=== PATIENT | male | born 1950 | race Two or more races ===

== ENCOUNTER 2017-05-20 16:42 | Emergency (ER) | payer MEDICARE, MEDICAID ==
[~2017-05-20] VITALS: Ht 182.9 cm; Wt 110.8 kg
[~2017-05-20 16:42] MED LIST: ASCO-261 PO; ASPI-1071 PO; CLON0.2T PO; DORZ10DR10 RIGHTEYE; FENO160T13 PO; FURO40TA4 PO; ISOS30TA6 PO; LOSA50TA3 PO; METO-411 PO; MULT-1074 PO; POTA10TA36 PO; TERA2CAP4 PO; TICA90TA2 PO; XAL0.005OS EACHEYE; imdur
[2017-05-20 17:04] LABS: BASOPHILS % (AUTO) 0.3 % (0-1); EOSINOPHILS # (AUTO) 0.1 X10'3 (0-0.9); HEMOGLOBIN 14.9 g/dl (14.0-17.9); LYMPHOCYTES # (AUTO) 1.8 X10'3 (1.1-4.8); LYMPHOCYTES % (AUTO) 12.7 % (21-51); MEAN CORPUSCULAR HEMOGLOBIN 30.6 PG (27.0-31.0); MEAN CORPUSCULAR HGB CONC 34.7 % (33.0-36.5); MEAN CORPUSCULAR VOLUME 88.2 FL (78-98); MEAN PLATELET VOLUME 9.7 FL (7.4-10.4); MONOCYTES % (AUTO) 7.5 % (2-12); NEUTROPHILS # (AUTO) 10.9 X10'3 (1.8-7.7); NEUTROPHILS % (AUTO) 78.5 % (42-75); PLATELET COUNT 240 X10'3 (140-440); RED BLOOD COUNT 4.87 X10'6 (4.70-6.10); RED CELL DISTRIBUTION WIDTH 14.2 % (11.5-14.5); WHITE BLOOD COUNT 13.9 X10'3 (4.5-11.0)
[2017-05-20 17:14] LABS: PARTIAL THROMBOPLASTIN TIME 26 SECONDS (22-32); PROTHROMBIN TIME 10.7 SECONDS (9.0-12.0)
[2017-05-20] MEDS ORDERED: adenosine 3mg/ml 2ml vial IV ONE ×2 (17:15)
[2017-05-20 17:20] LABS: ALANINE AMINOTRANSFERASE 30 U/L (12-78); ALBUMIN/GLOBULIN RATIO 1.2 (1.1-1.5); ALKALINE PHOSPHATASE 43 IU/L (46-116); ANION GAP 14 (8-16); ASPARTATE AMINO TRANSFERASE 22 U/L (10-37); BILIRUBIN,TOTAL 0.5 MG/DL (0.1-1.0); BLOOD UREA NITROGEN 21 MG/DL (7-18); BUN/CREATININE RATIO 10.8 (5.4-32.0); CALCIUM 9.4 MG/DL (8.5-10.1); CHLORIDE 109 MMOL/L (99-107); CREATININE 1.94 MG/DL (0.60-1.10); GLUCOSE 157 MG/DL (70-104); POTASSIUM 3.5 MMOL/L (3.5-5.1); SODIUM 146 MMOL/L (135-145); TOTAL CARBON DIOXIDE 23.5 MMOL/L (24-32); TOTAL PROTEIN 7.4 G/DL (6.4-8.2); eGFR 35 ML/MIN
[2017-05-20] MEDS ORDERED: diltiazem 5mg/ml 5ml inj. IV ONE ×2 (17:35)
[2017-05-20] MEDS: metoprolol tartrate 1mg/ml inj IV SCH ×4 (18:59→19:33)
[2017-05-20] MEDS ORDERED: normal saline 1000ml 1,000 ML IV ONE (19:30)
[2017-05-20 21:28] VITALS: BP 127/48
== END 2017-05-20 21:32 | disposition home or self-care (01) ==
LOC: ER 16:42
DX: I47.1 Supraventricular tachycardia (principal); E86.0 Dehydration; N17.9 Acute kidney failure, unspecified; I25.10 Atherosclerotic heart disease of native coronary artery without angina pectoris; R07.89 Other chest pain; E78.00 Pure hypercholesterolemia, unspecified; I10 Essential (primary) hypertension; F17.200 Nicotine dependence, unspecified, uncomplicated; Z88.0 Allergy status to penicillin; Z88.8 Allergy status to other drugs, medicaments and biological substances; Z79.899 Other long term (current) drug therapy; Z95.5 Presence of coronary angioplasty implant and graft
CPT/HCPCS: 36415; 71045; 80053; 84484; 85025; 85610; 85730; 93005; 96361; 96374; 99285; J0153; J3490; J7030; 96375

== ENCOUNTER 2017-06-03 21:02 | Observation (INO) | payer MEDICARE, MEDICAID ==
[~2017-06-03] VITALS: Ht 182.9 cm; Wt 109.1 kg
[2017-06-03 21:40] LABS: BASOPHILS % (AUTO) 0.4 % (0-1); EOSINOPHILS # (AUTO) 0.2 X10'3 (0-0.9); EOSINOPHILS % (AUTO) 1.5 % (0-6); HEMATOCRIT 41.2 % (42.0-52.0); HEMOGLOBIN 14.2 g/dl (14.0-17.9); LYMPHOCYTES % (AUTO) 18.3 % (21-51); MEAN CORPUSCULAR HEMOGLOBIN 30.6 PG (27.0-31.0); MEAN CORPUSCULAR HGB CONC 34.5 % (33.0-36.5); MEAN CORPUSCULAR VOLUME 88.9 FL (78-98); MEAN PLATELET VOLUME 9.4 FL (7.4-10.4); MONOCYTES # (AUTO) 0.9 X10'3 (0-0.9); MONOCYTES % (AUTO) 8.4 % (2-12); NEUTROPHILS # (AUTO) 7.8 X10'3 (1.8-7.7); NEUTROPHILS % (AUTO) 71.4 % (42-75); PLATELET COUNT 239 X10'3 (140-440); RED BLOOD COUNT 4.63 X10'6 (4.70-6.10); WHITE BLOOD COUNT 10.9 X10'3 (4.5-11.0)
[2017-06-03 21:52] LABS: INR 1.1 INR; PARTIAL THROMBOPLASTIN TIME 29 SECONDS (22-32); PROTHROMBIN TIME 10.9 SECONDS (9.0-12.0)
[2017-06-03 21:55] LABS: ALANINE AMINOTRANSFERASE 23 U/L (12-78); ALBUMIN 3.7 G/DL (3.4-5.0); ALBUMIN/GLOBULIN RATIO 1.1 (1.1-1.5); ALKALINE PHOSPHATASE 43 IU/L (46-116); ANION GAP 8 (8-16); ASPARTATE AMINO TRANSFERASE 15 U/L (10-37); BILIRUBIN,TOTAL 0.4 MG/DL (0.1-1.0); BLOOD UREA NITROGEN 15 MG/DL (7-18); BUN/CREATININE RATIO 12.4 (5.4-32.0); CALCIUM 9.2 MG/DL (8.5-10.1); CHLORIDE 109 MMOL/L (99-107); CREATININE 1.21 MG/DL (0.60-1.10); GLUCOSE 121 MG/DL (70-104); POTASSIUM 3.2 MMOL/L (3.5-5.1); SODIUM 144 MMOL/L (135-145); TOTAL CARBON DIOXIDE 26.9 MMOL/L (24-32); TOTAL PROTEIN 7.1 G/DL (6.4-8.2); eGFR 60 ML/MIN
[2017-06-03] MEDS ORDERED: digoxin 250mcg/ml 2ml ampule IV ONE (22:05)
[2017-06-03] MEDS ORDERED: potassium chloride 10mEq CAPSULE.SA PO STA (23:19)
[2017-06-03] MEDS ORDERED: FISH1CAP15 PO (23:41)
[2017-06-03] MEDS ORDERED: APIX5TAB3 PO (23:41)
[2017-06-03] MEDS ORDERED: CLOP75TA35 PO (23:41)
[2017-06-03] MEDS ORDERED: FENO145T38 PO (23:41)
[2017-06-03] MEDS ORDERED: ATOR20TA PO (23:41)
[2017-06-03] MEDS ORDERED: ALFU10TA10 PO (23:41)
[2017-06-03] MEDS ORDERED: GLUC-133 PO (23:41)
[2017-06-03] MEDS ORDERED: HYDR12.5 PO (23:41)
[2017-06-03] MEDS ORDERED: VITA400C65 PO (23:41)
[2017-06-03] MEDS ORDERED: LUTE1CAP4 PO (23:41)
[2017-06-03] MEDS ORDERED: HYDR-4070 PO (23:41)
[2017-06-03] MEDS ORDERED: potassium Cl 20 mEq SR tablet PO STA (23:45)
[2017-06-04] MEDS ORDERED: ondansetron/PF 4mg/2ml inj IV PRN (00:25)
[2017-06-04] MEDS ORDERED: non-formulary drug (Gluc 2KCL/Chondr/Coll Hy/Hy Ac (Glucosamine & Chondroitin Cap) 1 EACH) PO SCH (08:00)
[2017-06-04] MEDS ORDERED: HYDROchlorothiazide 12.5mg capsule PO SCH (08:00)
[2017-06-04] MEDS ORDERED: ZEAXANTHIN PO SCH (08:00)
[2017-06-04] MEDS ORDERED: clopidogrel 75mg tablet PO SCH (08:00)
[2017-06-04] MEDS ORDERED: FENOFIBRATE PO SCH (08:00)
[2017-06-04] MEDS ORDERED: OMEGA-3/DHA/EPA/FISH OIL 1 EACH CAPSULE.DR PO SCH (08:00)
[2017-06-04] MEDS ORDERED: alfuzosin 10MG TAB.SR.24H PO SCH (08:00)
[2017-06-04] MEDS ORDERED: losartan 50mg tablet PO SCH (08:00)
[2017-06-04] MEDS ORDERED: diltiazem SR 60mg capsule (twice daily) PO SCH (08:00)
[2017-06-04] MEDS ORDERED: LUTEIN PO SCH (08:00)
[2017-06-04] MEDS ORDERED: apixaban 5mg tablet PO SCH (08:00)
[2017-06-04] MEDS ORDERED: dorzolamide/timolol (Cosopt) ophthalmic drops 10ml bottle RIGHTEYE SCH (08:00)
[2017-06-04] MEDS ORDERED: metoprolol succinate 25mg (24-HOUR) SR. Tablet PO SCH (08:00)
[2017-06-04] MEDS ORDERED: ascorbic acid 500mg tablet PO SCH (08:00)
[2017-06-04] MEDS ORDERED: vitamin E 400 unit capsule PO SCH (08:00)
[2017-06-04] MEDS ORDERED: multivitamins, therapeutics tablet PO SCH (08:00)
[2017-06-04] MEDS ORDERED: fenofibrate 145mg tablet PO SCH (08:00)
[2017-06-04] MEDS ORDERED: hydrALAZINE 25 MG tablet PO SCH (08:00)
[2017-06-04] MEDS ORDERED: ALFUZOSIN 10 MG PO SCH (08:13)
[2017-06-04] MEDS ORDERED: sotalol 80mg tablet PO SCH (11:20)
[2017-06-04] MEDS ORDERED: SOTA80TA69 PO ×2 (11:36)
[2017-06-04 12:30] VITALS: BP 125/58
[2017-06-04] MEDS ORDERED: atorvastatin 20mg tablet PO SCH (21:00)
[2017-06-04] MEDS ORDERED: latanoprost 0.005% 2.5ml ophthalmic drops EACHEYE SCH (21:00)
== END 2017-06-04 13:35 | disposition home or self-care (01) ==
LOC: ER 21:03 → ED HOLD 06-04 00:24
PROVIDERS: ADMIT Family Medicine; ATTEND Family Medicine
DX: I48.91 Unspecified atrial fibrillation (principal); I25.10 Atherosclerotic heart disease of native coronary artery without angina pectoris; I47.1 Supraventricular tachycardia; I10 Essential (primary) hypertension; E78.5 Hyperlipidemia, unspecified; E78.00 Pure hypercholesterolemia, unspecified; E87.6 Hypokalemia; F10.10 Alcohol abuse, uncomplicated; F41.9 Anxiety disorder, unspecified; G89.29 Other chronic pain; J44.9 Chronic obstructive pulmonary disease, unspecified; K21.9 Gastro-esophageal reflux disease without esophagitis; K27.9 Peptic ulcer, site unspecified, unspecified as acute or chronic, without hemorrhage or perforation; K44.9 Diaphragmatic hernia without obstruction or gangrene; N40.0 Benign prostatic hyperplasia without lower urinary tract symptoms; Z72.0 Tobacco use; Z95.5 Presence of coronary angioplasty implant and graft; Z80.9 Family history of malignant neoplasm, unspecified
CPT/HCPCS: 36415; 71045; 80053; 80162; 84484; 85025; 85610; 85730; 93005; 96374; 99285; G0378; J1160; J7030

== ENCOUNTER 2017-06-10 14:39 | Inpatient (IN) | payer MEDICARE, MEDICAID ==
[~2017-06-10] VITALS: Ht 182.9 cm; Wt 110.0 kg
[~2017-06-10 14:39] MED LIST changes: +ALFU10TA10 PO; +APIX5TAB3 PO; -ASPI-1071 PO; +ATOR20TA PO; -CLON0.2T PO; +CLOP75TA35 PO; +FENO145T38 PO; -FENO160T13 PO; +FISH1CAP15 PO; -FURO40TA4 PO; +GLUC-133 PO; +HYDR-4070 PO; +HYDR12.5 PO; -ISOS30TA6 PO; +LUTE1CAP4 PO; -METO-411 PO; -POTA10TA36 PO; +SOTA80TA69 PO; -TERA2CAP4 PO; -TICA90TA2 PO; +VITA400C65 PO; -imdur
[2017-06-10 15:10] LABS: BASOPHILS % (AUTO) 0.2 % (0-1); EOSINOPHILS # (AUTO) 0.1 X10'3 (0-0.9); EOSINOPHILS % (AUTO) 0.5 % (0-6); HEMATOCRIT 42.6 % (42.0-52.0); HEMOGLOBIN 14.6 g/dl (14.0-17.9); LYMPHOCYTES # (AUTO) 0.6 X10'3 (1.1-4.8); LYMPHOCYTES % (AUTO) 3.9 % (21-51); MEAN CORPUSCULAR HEMOGLOBIN 30.8 PG (27.0-31.0); MEAN CORPUSCULAR HGB CONC 34.4 % (33.0-36.5); MEAN CORPUSCULAR VOLUME 89.4 FL (78-98); MEAN PLATELET VOLUME 9.7 FL (7.4-10.4); MONOCYTES # (AUTO) 0.6 X10'3 (0-0.9); MONOCYTES % (AUTO) 4.2 % (2-12); NEUTROPHILS # (AUTO) 12.9 X10'3 (1.8-7.7); NEUTROPHILS % (AUTO) 91.2 % (42-75); PLATELET COUNT 211 X10'3 (140-440); RED BLOOD COUNT 4.76 X10'6 (4.70-6.10); RED CELL DISTRIBUTION WIDTH 14.4 % (11.5-14.5); WHITE BLOOD COUNT 14.1 X10'3 (4.5-11.0)
[2017-06-10 15:20] LABS: PARTIAL THROMBOPLASTIN TIME 28 SECONDS (22-32); PROTHROMBIN TIME 10.6 SECONDS (9.0-12.0)
[2017-06-10] MEDS ORDERED: normal saline 1000ML IV soln IVB ONE (15:25)
[2017-06-10 15:29] LABS: ALANINE AMINOTRANSFERASE 24 U/L (12-78); ALBUMIN 3.7 G/DL (3.4-5.0); ALBUMIN/GLOBULIN RATIO 1.1 (1.1-1.5); ALKALINE PHOSPHATASE 43 IU/L (46-116); ANION GAP 10 (8-16); ASPARTATE AMINO TRANSFERASE 17 U/L (10-37); BILIRUBIN,TOTAL 0.5 MG/DL (0.1-1.0); BLOOD UREA NITROGEN 23 MG/DL (7-18); BUN/CREATININE RATIO 10.6 (5.4-32.0); CALCIUM 8.6 MG/DL (8.5-10.1); CHLORIDE 109 MMOL/L (99-107); CREATININE 2.16 MG/DL (0.60-1.10); GLUCOSE 126 MG/DL (70-104); SODIUM 142 MMOL/L (135-145); TOTAL CARBON DIOXIDE 22.8 MMOL/L (24-32); TOTAL PROTEIN 7.2 G/DL (6.4-8.2); eGFR 31 ML/MIN
[2017-06-10] MEDS ORDERED: normal saline 1000ml 1,000 ML IV ONE (17:30)
[2017-06-10] MEDS ORDERED: loperamide 2mg capsule PO ONE (17:40)
[2017-06-10] MEDS ORDERED: ondansetron/PF 4mg/2ml inj IV PRN (20:30)
[2017-06-10] MEDS ORDERED: mag hydrox/Alum hydrox/simeth 30ml oral suspension PO PRN (20:30)
[2017-06-10] MEDS ORDERED: acetaminophen 325mg tablet PO PRN ×2 (20:30)
[2017-06-10] MEDS ORDERED: magnesium hydroxide 30ml (MOM) UD suspension PO PRN (20:30)
[2017-06-10] MEDS: latanoprost 0.005% 2.5ml ophthalmic drops EACHEYE SCH (21:00)
[2017-06-10] MEDS ORDERED: metroNIDAZOLE-Flagyl 500mg/NS 100 ML IV SCH (21:10)
[2017-06-10] MEDS: normal saline 1000ml 1,000 ML IV SCH (22:14)
[2017-06-10] MEDS: atorvastatin 20mg tablet PO SCH (22:14)
[2017-06-10] MEDS: metroNIDAZOLE 500mg tablet PO SCH (22:14)
[2017-06-11 03:14] LABS: BASOPHILS % (AUTO) 0.2 % (0-1); EOSINOPHILS % (AUTO) 0.7 % (0-6); HEMATOCRIT 33.5 % (42.0-52.0); HEMOGLOBIN 11.3 g/dl (14.0-17.9); LYMPHOCYTES # (AUTO) 0.7 X10'3 (1.1-4.8); LYMPHOCYTES % (AUTO) 10.2 % (21-51); MEAN CORPUSCULAR HEMOGLOBIN 30.4 PG (27.0-31.0); MEAN CORPUSCULAR HGB CONC 33.8 % (33.0-36.5); MEAN CORPUSCULAR VOLUME 89.9 FL (78-98); MEAN PLATELET VOLUME 9.5 FL (7.4-10.4); MONOCYTES # (AUTO) 0.7 X10'3 (0-0.9); MONOCYTES % (AUTO) 10.5 % (2-12); NEUTROPHILS # (AUTO) 5.2 X10'3 (1.8-7.7); NEUTROPHILS % (AUTO) 78.4 % (42-75); PLATELET COUNT 166 X10'3 (140-440); RED BLOOD COUNT 3.73 X10'6 (4.70-6.10); RED CELL DISTRIBUTION WIDTH 14.5 % (11.5-14.5); WHITE BLOOD COUNT 6.6 X10'3 (4.5-11.0)
[2017-06-11 03:32] LABS: ALBUMIN 2.7 G/DL (3.4-5.0); ANION GAP 11 (8-16); BLOOD UREA NITROGEN 23 MG/DL (7-18); BUN/CREATININE RATIO 14.9 (5.4-32.0); CHLORIDE 113 MMOL/L (99-107); CREATININE 1.54 MG/DL (0.60-1.10); GLUCOSE 92 MG/DL (70-104); POTASSIUM 3.1 MMOL/L (3.5-5.1); SODIUM 145 MMOL/L (135-145); TOTAL CARBON DIOXIDE 21.1 MMOL/L (24-32); eGFR 46 ML/MIN
[2017-06-11] MEDS: timolol 0.5% ophthalmic solution 5ml bottle RIGHTEYE SCH ×3 (08:00→21:38)
[2017-06-11] MEDS: dorzolamide 2% ophthalmic drops 10ml RIGHTEYE SCH ×3 (08:00→21:39)
[2017-06-11] MEDS: normal saline 1000ml 1,000 ML IV SCH ×3 (08:00→22:00)
[2017-06-11] MEDS ORDERED: dorzolamide/timolol (Cosopt) ophthalmic drops 10ml bottle RIGHTEYE SCH (08:00)
[2017-06-11 09:01] LABS: CLARITY,URINE CLEAR (Clear); COLOR,URINE YELLOW (Yellow); GLUCOSE, URINE NEGATIVE (Neg); KETONES,URINE NEGATIVE (Neg); LEUKOCYTE ESTERASE ,URINE NEGATIVE (Neg); NITRITES, URINE NEGATIVE (Neg); OCCULT BLOOD,URINE NEGATIVE (Neg); PH,URINE 5.5 (4.8-8.0); PROTEIN,URINE TRACE mg/dl (Neg); UROBILINOGEN,URINE 0.2 E.U/dL (0.2-1.0)
[2017-06-11 09:02] LABS: UA COLLECTION TYPE CLN CATCH MIDSTREAM
[2017-06-11 09:07] LABS: BACTERIA,URINE NONE SEEN /HPF (Neg); HYALINE CASTS 0-3 /LPF (NEGATIVE); MUCUS STRANDS FEW /LPF (Neg); RBC,URINE 0-2 /HPF (0-2); SQUAMOUS EPITHELIAL CELL,UR FEW /LPF (FEW); WBC,URINE 0-4 /HPF (0-4)
[2017-06-11] MEDS: metroNIDAZOLE 500mg tablet PO SCH ×3 (09:52→21:40)
[2017-06-11] MEDS: amiodarone 200mg tablet PO SCH ×3 (09:53→21:40)
[2017-06-11] MEDS: clopidogrel 75mg tablet PO SCH (09:53)
[2017-06-11] MEDS: metoprolol tartrate 50mg tablet PO SCH ×2 (09:54→21:38)
[2017-06-11] MEDS: losartan 50mg tablet PO SCH ×2 (10:38→21:37)
[2017-06-11] MEDS: apixaban 5mg tablet PO SCH ×2 (10:38→21:37)
[2017-06-11] MEDS: fenofibrate 145mg tablet PO SCH (10:38)
[2017-06-11 11:25] LABS: C DIFF ANTIGEN NEGATIVE (NEGATIVE); C DIFF SPECIMEN=DIARRHEA? ACCEPTABLE; C DIFFICILE TOXINS A&B NEGATIVE (Neg)
[2017-06-11] MEDS ORDERED: potassium Cl 20 mEq SR tablet PO ONE ×2 (17:10→22:10)
[2017-06-11 17:39] VITALS: BP 171/87
[2017-06-11 19:00] VITALS: BP 177/88
[2017-06-11] MEDS: latanoprost 0.005% 2.5ml ophthalmic drops EACHEYE SCH (21:00)
[2017-06-11] MEDS: lactobacillus rhamnosus 10,000 MMU CELLS/CAPSULE PO SCH (21:37)
[2017-06-11] MEDS: atorvastatin 20mg tablet PO SCH (21:40)
[2017-06-11 23:00] VITALS: BP 165/78
[2017-06-12 02:30] VITALS: BP 161/83
[2017-06-12 06:00] VITALS: BP 144/57
[2017-06-12 06:20] LABS: BASOPHILS % (AUTO) 0.2 % (0-1); EOSINOPHILS # (AUTO) 0.1 X10'3 (0-0.9); EOSINOPHILS % (AUTO) 1.7 % (0-6); HEMATOCRIT 35.8 % (42.0-52.0); HEMOGLOBIN 12.1 g/dl (14.0-17.9); LYMPHOCYTES # (AUTO) 0.8 X10'3 (1.1-4.8); LYMPHOCYTES % (AUTO) 16.7 % (21-51); MEAN CORPUSCULAR HEMOGLOBIN 29.9 PG (27.0-31.0); MEAN CORPUSCULAR HGB CONC 33.9 % (33.0-36.5); MEAN CORPUSCULAR VOLUME 88.1 FL (78-98); MONOCYTES # (AUTO) 0.6 X10'3 (0-0.9); MONOCYTES % (AUTO) 12.6 % (2-12); NEUTROPHILS # (AUTO) 3.5 X10'3 (1.8-7.7); NEUTROPHILS % (AUTO) 68.8 % (42-75); PLATELET COUNT 161 X10'3 (140-440); RED BLOOD COUNT 4.06 X10'6 (4.70-6.10); RED CELL DISTRIBUTION WIDTH 13.8 % (11.5-14.5)
[2017-06-12 06:35] LABS: ALBUMIN 2.9 G/DL (3.4-5.0); ANION GAP 10 (8-16); BLOOD UREA NITROGEN 13 MG/DL (7-18); BUN/CREATININE RATIO 12.4 (5.4-32.0); CALCIUM 7.6 MG/DL (8.5-10.1); CHLORIDE 113 MMOL/L (99-107); CREATININE 1.05 MG/DL (0.60-1.10); GLUCOSE 93 MG/DL (70-104); POTASSIUM 4.1 MMOL/L (3.5-5.1); SODIUM 144 MMOL/L (135-145); TOTAL CARBON DIOXIDE 21.5 MMOL/L (24-32); eGFR 71 ML/MIN
[2017-06-12] MEDS: fenofibrate 145mg tablet PO SCH (07:52)
[2017-06-12] MEDS: apixaban 5mg tablet PO SCH (07:53)
[2017-06-12] MEDS: losartan 50mg tablet PO SCH (07:53)
[2017-06-12] MEDS: metoprolol tartrate 50mg tablet PO SCH (07:53)
[2017-06-12] MEDS: amiodarone 200mg tablet PO SCH ×2 (07:53→12:29)
[2017-06-12] MEDS: clopidogrel 75mg tablet PO SCH (07:53)
[2017-06-12] MEDS: lactobacillus rhamnosus 10,000 MMU CELLS/CAPSULE PO SCH (07:53)
[2017-06-12] MEDS: metroNIDAZOLE 500mg tablet PO SCH (07:53)
[2017-06-12] MEDS: timolol 0.5% ophthalmic solution 5ml bottle RIGHTEYE SCH (08:00)
[2017-06-12] MEDS ORDERED: ALFUZOSIN PO SCH (08:00)
[2017-06-12] MEDS: dorzolamide 2% ophthalmic drops 10ml RIGHTEYE SCH (08:00)
[2017-06-12] MEDS ORDERED: loperamide 2mg capsule PO ONE (10:05)
[2017-06-12] MEDS ORDERED: METO50TA16 PO (11:05)
[2017-06-12] MEDS ORDERED: LOPE-155 PO (11:05)
[2017-06-12] MEDS ORDERED: AMIO200T57 PO (11:05)
[2017-06-12] MEDS ORDERED: tamsulosin 0.4mg capsule PO SCH (21:00)
== END 2017-06-12 12:40 | disposition home or self-care (01) | DRG 872 ==
LOC: ER 14:39 → ED HOLD 20:30 → EDBEDREQ 06-11 16:00 → PCU 3S 06-11 16:48
PROVIDERS: ADMIT Internal Medicine; ATTEND Internal Medicine
DX: A41.9 Sepsis, unspecified organism (principal); N17.9 Acute kidney failure, unspecified; I95.9 Hypotension, unspecified; I48.91 Unspecified atrial fibrillation; E78.00 Pure hypercholesterolemia, unspecified; E86.0 Dehydration; A08.4 Viral intestinal infection, unspecified; I48.92 Unspecified atrial flutter; E78.5 Hyperlipidemia, unspecified; J44.9 Chronic obstructive pulmonary disease, unspecified; K27.9 Peptic ulcer, site unspecified, unspecified as acute or chronic, without hemorrhage or perforation; K21.9 Gastro-esophageal reflux disease without esophagitis; I12.9 Hypertensive chronic kidney disease with stage 1 through stage 4 chronic kidney disease, or unspecified chronic kidney disease; N18.9 Chronic kidney disease, unspecified; F41.9 Anxiety disorder, unspecified; I25.10 Atherosclerotic heart disease of native coronary artery without angina pectoris; N40.0 Benign prostatic hyperplasia without lower urinary tract symptoms; F17.210 Nicotine dependence, cigarettes, uncomplicated; Z95.5 Presence of coronary angioplasty implant and graft; Z88.0 Allergy status to penicillin; Z88.8 Allergy status to other drugs, medicaments and biological substances; Z79.899 Other long term (current) drug therapy; Z79.01 Long term (current) use of anticoagulants; Z79.02 Long term (current) use of antithrombotics/antiplatelets; Z87.11 Personal history of peptic ulcer disease; Z80.9 Family history of malignant neoplasm, unspecified; Z82.3 Family history of stroke
CPT/HCPCS: 36415; 71045; 80048; 80053; 81001; 83605; 84145; 84484; 85025; 85610; 85730; 87040; 87070; 87324; 87449; 93005; 96360; 96361; 99285; J3490; J7030

== ENCOUNTER 2020-03-22 06:09 | Day surgery (SDC) | payer MEDICARE, OTHER ==
[2020-03-21 11:49] LABS: BASOPHILS # (AUTO) 0.1 X10'3 (0-0.2); BASOPHILS % (AUTO) 0.7 % (0-1); EOSINOPHILS # (AUTO) 0.1 X10'3 (0-0.9); EOSINOPHILS % (AUTO) 1.2 % (0-6); HEMATOCRIT 38.1 % (42.0-52.0); HEMOGLOBIN 12.4 g/dl (14.0-17.9); LYMPHOCYTES % (AUTO) 11.5 % (21-51); MEAN CORPUSCULAR HEMOGLOBIN 28.6 PG (27.0-31.0); MEAN CORPUSCULAR HGB CONC 32.7 g/dL (33.0-36.5); MEAN CORPUSCULAR VOLUME 87.5 FL (78-98); MEAN PLATELET VOLUME 10.3 FL (7.4-10.4); MONOCYTES # (AUTO) 0.9 X10'3 (0-0.9); MONOCYTES % (AUTO) 10.2 % (2-12); NEUTROPHILS # (AUTO) 6.5 X10'3 (1.8-7.7); NEUTROPHILS % (AUTO) 76.4 % (42-75); PLATELET COUNT 198 X10'3 (140-440); RED BLOOD COUNT 4.35 X10'6 (4.70-6.10); RED CELL DISTRIBUTION WIDTH 15.3 % (11.5-14.5); WHITE BLOOD COUNT 8.5 X10'3 (4.5-11.0)
[2020-03-21 11:59] LABS: ALBUMIN 3.4 G/DL (3.4-5.0); ANION GAP 8 (8-16); BLOOD UREA NITROGEN 14 MG/DL (7-18); BUN/CREATININE RATIO 13.1 (5.4-32.0); CALCIUM 8.4 MG/DL (8.5-10.1); CHLORIDE 110 MMOL/L (99-107); CREATININE 1.07 MG/DL (0.60-1.10); GLUCOSE 94 MG/DL (70-104); POTASSIUM 3.6 MMOL/L (3.5-5.1); SODIUM 144 MMOL/L (135-145); TOTAL CARBON DIOXIDE 26.5 MMOL/L (24-32); eGFR 69 ML/MIN
[2020-03-21 12:00] LABS: PARTIAL THROMBOPLASTIN TIME 27 SECONDS (22-32)
[2020-03-22] VITALS (10 sets, daily range): BP systolic 130–154; BP diastolic 57–70
[~2020-03-22] VITALS: Ht 182.9 cm; Wt 123.2 kg
[~2020-03-22 06:09] MED LIST changes: +AMIO200T61 PO; +CLOP75TA34 PO; -CLOP75TA35 PO; -HYDR12.5 PO; +LOPE-190 PO; +METO50TA16 PO; -SOTA80TA69 PO; +VITA-134 PO; -VITA400C65 PO
[2020-03-22] MEDS ORDERED: normal saline 1,000 ML IV SCH ×2 (06:25→09:15)
[2020-03-22] MEDS ORDERED: diphenhydrAMINE 25mg capsule PO PRN (06:25)
[2020-03-22] MEDS ORDERED: LORazepam 0.5 MG tablet PO PRN (06:25)
[2020-03-22] MEDS ORDERED: LIDOcaine/PRILOcaine 5gm cream TP ONE (06:30)
[2020-03-22] MEDS ORDERED: METO100T14 PO (06:50)
[2020-03-22] MEDS ORDERED: AMIO200T61 PO (06:52)
[2020-03-22] MEDS ORDERED: fentaNYL/PF 50MCG/1 ML 2ML syringe ONE (07:06)
[2020-03-22] MEDS ORDERED: midazolam 2 mg/2 ml injection ONE (07:06)
[2020-03-22] MEDS ORDERED: nitroGLYCERIN-Tridil 50MG/D5W 250 ML IV ONE (07:06)
[2020-03-22] MEDS ORDERED: verapamil 2.5 mg/ml inj IV ONE (07:06)
[2020-03-22] MEDS ORDERED: iohexol 350MG/ML 100ml bottle IV ONE (07:07)
[2020-03-22] MEDS ORDERED: heparin 1,000unit/ml 10ml vial 10 ML ONE (07:07)
[2020-03-22] MEDS ORDERED: LIDOcaine 1% (10mg/ml)w/preservative injection 20ml MDV ONE (07:07)
[2020-03-22] MEDS ORDERED: iohexol 350 MG/ML 50ML vial IV ONE (07:07)
== END 2020-03-22 13:00 | disposition home or self-care (01) ==
LOC: SSTAY O 06:09
PROVIDERS: ATTEND Internal Medicine Cardiovascular Disease
DX: R94.39 Abnormal result of other cardiovascular function study (principal); I25.10 Atherosclerotic heart disease of native coronary artery without angina pectoris; I10 Essential (primary) hypertension; G47.30 Sleep apnea, unspecified; I48.0 Paroxysmal atrial fibrillation; J44.9 Chronic obstructive pulmonary disease, unspecified; K21.9 Gastro-esophageal reflux disease without esophagitis; N40.0 Benign prostatic hyperplasia without lower urinary tract symptoms; E78.49 Other hyperlipidemia; F41.9 Anxiety disorder, unspecified; F10.10 Alcohol abuse, uncomplicated; M19.90 Unspecified osteoarthritis, unspecified site; I35.0 Nonrheumatic aortic (valve) stenosis; E66.9 Obesity, unspecified; Z68.36 Body mass index [BMI] 36.0-36.9, adult; Z79.01 Long term (current) use of anticoagulants; Z79.899 Other long term (current) drug therapy; Z95.5 Presence of coronary angioplasty implant and graft; Z98.890 Other specified postprocedural states; F17.210 Nicotine dependence, cigarettes, uncomplicated; Z88.0 Allergy status to penicillin; Z88.8 Allergy status to other drugs, medicaments and biological substances
CPT/HCPCS: 36415; 76937; 80048; 85025; 85610; 85730; 93005; 93460; 99152; 99153; C1769; C1894; J1644; J2001; J2250; J3010; J7030; Q0163; Q9967; A4620; A5120; A6258; C1751; J3490

== ENCOUNTER 2020-05-23 10:13 | Outpatient (CLI) | payer MEDICARE, OTHER ==
[~2020-05-23 10:13] MED LIST changes: -LOPE-190 PO; +METO100T14 PO; -METO50TA16 PO
[2020-05-23 10:32] LABS: TOTAL HEMOGLOBIN 12.8 G/dl (14.0-18.0)
== END 2020-05-23 23:59 | disposition home or self-care (01) ==
LOC: RT 10:13
PROVIDERS: ATTEND Internal Medicine Cardiovascular Disease
DX: R94.2 Abnormal results of pulmonary function studies (principal); J44.9 Chronic obstructive pulmonary disease, unspecified
CPT/HCPCS: 71046; 85018; 94010; 94727; 94729

== ENCOUNTER 2020-11-05 10:02 | Day surgery (SDC) | payer MEDICARE, OTHER ==
[~2020-11-05] VITALS: Ht 182.9 cm; Wt 113.6 kg
[2020-11-05] MEDS ORDERED: LIDOcaine Viscous 15ml cup ONE (10:13)
[2020-11-05] MEDS ORDERED: MIDAZolam 1 MG/ML 5ML VIAL ONE (10:13)
[2020-11-05] MEDS ORDERED: fentaNYL/PF 50MCG/1 ML 2ML syringe ONE (10:13)
[2020-11-05 10:14] VITALS: BP 149/93
[2020-11-05] MEDS ORDERED: HYDR12.55 PO (11:01)
[2020-11-05] MEDS ORDERED: FEXO-62 PO (11:05)
[2020-11-05] MEDS ORDERED: NAS0.025NS BOTHNARES (11:06)
[2020-11-05 11:32] VITALS: BP 163/84
[2020-11-05 11:40] VITALS: BP 159/82
[2020-11-05 11:50] VITALS: BP 161/89
[2020-11-05 12:00] VITALS: BP 156/81
== END 2020-11-05 12:10 | disposition home or self-care (01) ==
LOC: GI LAB 10:02
PROVIDERS: ATTEND Internal Medicine Gastroenterology
DX: K92.1 Melena (principal); K22.8 Other specified diseases of esophagus; K31.811 Angiodysplasia of stomach and duodenum with bleeding; K29.80 Duodenitis without bleeding; K20.80 Other esophagitis without bleeding; Z98.890 Other specified postprocedural states; Z87.11 Personal history of peptic ulcer disease; Z79.01 Long term (current) use of anticoagulants; Z88.0 Allergy status to penicillin
CPT/HCPCS: 43239; 43255; 99153; G0500; J2250; J3010; J7040; Z7512; 43227; 88305; 88313; 99152; A4620

== ENCOUNTER 2021-04-19 08:00 | Day surgery (SDC) | payer OTHER ==
[2021-04-12 15:21] LABS: BASOPHILS # (AUTO) 0.1 X10'3 (0-0.2); BASOPHILS % (AUTO) 0.8 % (0-1); EOSINOPHILS # (AUTO) 0.1 X10'3 (0-0.9); LYMPHOCYTES # (AUTO) 1.6 X10'3 (1.1-4.8); LYMPHOCYTES % (AUTO) 22.4 % (21-51); MEAN CORPUSCULAR HEMOGLOBIN 25.8 PG (27.0-31.0); MEAN CORPUSCULAR HGB CONC 32.4 g/dL (33.0-36.5); MEAN CORPUSCULAR VOLUME 79.5 FL (78-98); MEAN PLATELET VOLUME 9.8 FL (7.4-10.4); MONOCYTES # (AUTO) 0.8 X10'3 (0-0.9); NEUTROPHILS # (AUTO) 4.6 X10'3 (1.8-7.7); NEUTROPHILS % (AUTO) 63.8 % (42-75); PRE OP HEMATOCRIT 36.7 % (42.0-52.0); PRE OP HEMOGLOBIN 11.9 g/dL (14.0-17.9); PRE OP PLATELET COUNT 236 X10'3 (140-440); RED BLOOD COUNT 4.62 X10'6 (4.70-6.10); RED CELL DISTRIBUTION WIDTH 17.3 % (11.5-14.5)
[2021-04-12 15:22] LABS: CLARITY,URINE CLEAR (Clear); COLOR,URINE YELLOW (Yellow); GLUCOSE, URINE NEGATIVE (Neg); KETONES,URINE NEGATIVE (Neg); LEUKOCYTE ESTERASE ,URINE NEGATIVE (Neg); NITRITES, URINE NEGATIVE (Neg); OCCULT BLOOD,URINE NEGATIVE (Neg); PROTEIN,URINE NEGATIVE (Neg); UROBILINOGEN,URINE 0.2 E.U/dL (0.2-1.0)
[2021-04-12 15:35] LABS: UA COLLECTION TYPE CLN CATCH MIDSTREAM
[2021-04-12 16:03] LABS: ALBUMIN 3.4 G/DL (3.4-5.0); ALBUMIN/GLOBULIN RATIO 1.1 (1.1-1.5); ALKALINE PHOSPHATASE 49 IU/L (46-116); BLOOD UREA NITROGEN 13 MG/DL (7-18); CALCIUM 8.5 MG/DL (8.5-10.1); CHLORIDE 109 MMOL/L (99-107); CREATININE 1.08 MG/DL (0.60-1.10); PRE OP ALT 21 U/L (30-65); PRE OP ANION GAP 10 (8-16); PRE OP AST 16 U/L (10-37); PRE OP BILIRUB, TOTAL 0.3 MG/DL (0.0-1.0); PRE OP GLUCOSE 85 MG/DL (70-104); PRE OP POTASSIUM 3.9 MMOL/L (3.4-5.1); PRE OP SODIUM 144 MMOL/L (135-145); TOTAL CARBON DIOXIDE 24.9 MMOL/L (24-32); TOTAL PROTEIN 6.4 G/DL (6.4-8.2); eGFR 68 ML/MIN
[~2021-04-19] VITALS: Ht 182.9 cm; Wt 120.2 kg
[2021-04-19] VITALS (21 sets, daily range): BP systolic 109–149; BP diastolic 49–79
[~2021-04-19 08:00] MED LIST changes: +DOCUMENT DATE & TIME OF BETA-BLOCKER PO ONE; +HYDR12.55 PO; +NAS0.025NS BOTHNARES; +clindamycin-Cleocin 900mg/D5W 50 ML IV ONE; +famotidine 20mg tablet PO ONE; +ringers solution, lacted 1,000 ML IV SCH
[2021-04-19] MEDS ORDERED: morphine 4 MG/ML inj SYRINge IV PRN (09:05)
[2021-04-19] MEDS ORDERED: proCHLORperazine 10 MG/2 ml inj IV PRN (09:05)
[2021-04-19] MEDS ORDERED: morphine 2 MG/ML inj. syringe IV PRN (09:05)
[2021-04-19] MEDS ORDERED: ondansetron/PF 4mg/2ml inj IV PRN (09:05)
[2021-04-19] MEDS ORDERED: meperidine/PF 25mg/ml syringe IV PRN ×3 (09:05)
[2021-04-19] MEDS ORDERED: ringers solution, lacted 1,000 ML IV SCH (09:05)
[2021-04-19] MEDS ORDERED: bacitracin 15gm ointment TP ONE ×2 (09:32→12:16)
[2021-04-19] MEDS ORDERED: FENTANYL CITRATE/PF 50 MCG/1 ML VIAL ONE (10:09)
[2021-04-19] MEDS ORDERED: MIDAZolam 1 MG/ML 5ML VIAL ONE ×2 (10:11→12:23)
[2021-04-19] MEDS ORDERED: ROPIVAcaine 0.5% (5mg/ml) 30ml vial ONE (10:12)
[2021-04-19] MEDS ORDERED: BUPIVAcaine/PF 7.5mg/ml (0.75%) 10ml vial ONE (10:55)
[2021-04-19] MEDS ORDERED: propofol inj 20 ML IV ONE (11:02)
[2021-04-19] MEDS ORDERED: ROPIVAcaine 0.2% (10 MG/5 ML) BOLUS INJECTION POPLITEAL PRN (11:50)
[2021-04-19] MEDS ORDERED: ROPIVAcaine 0.2%/PF PUMP/bolus 545 ML POPLITEAL SCH (11:50)
--- NOTE | 2021-04-19 12:34 | NUR ---
Received from OR via [facility], accompanied by Anesthesiologist DR MCCALL and report given by Anesthesiolgist. PT PRESENT WITH PIV 18G LEFT HAND, DRESSING ON RIGHT FOOT/ANKLE/LOWER LEG CLEAN DRY AND INTACT, VSS.
--- NOTE | 2021-04-19 15:00 | NUR ---
PT REPORTS NOT ABLE TO URINATE AT THIS TIME. PT BLADDER SCANNED WITH [address] MCCALL NOTIFIED. OK FOR PT TO GO HOME PER DR MCCALL. Addendum: 04/19/21 at 1647 by Gladys Jacobsen RN, RN Amended: Links added.
--- NOTE | 2021-04-19 15:44 | NUR ---
PEDRO RIZVI MET, PAIN 0. IV CATHETER DC'D WITH CANNULA INTACT. DC INSTRUCTIONS REVIEWED WITH PT, PT VERBALIZED UNDERSTANDING WITH NO FURTHER QUESTIONS AT THIS TIME. PT WHEELOUT OUT IN WHEELCHAIR. DC ISNTRUCITONS REVIEWED WITH PT'S GIRLFRIEND WHO VERBALIZED UNDERSTANDING. Addendum: 04/19/21 at 1627 by Gladys Jacobsen RN, RN Amended: Links added.
== END 2021-04-19 15:44 | disposition home or self-care (01) ==
LOC: PAS 08:00
PROVIDERS: ATTEND Podiatrist Foot & Ankle Surgery
DX: S96.811A Strain of other specified muscles and tendons at ankle and foot level, right foot, initial encounter (principal); G89.18 Other acute postprocedural pain; I10 Essential (primary) hypertension; M16.12 Unilateral primary osteoarthritis, left hip; F17.210 Nicotine dependence, cigarettes, uncomplicated; G47.30 Sleep apnea, unspecified; I48.91 Unspecified atrial fibrillation; H40.9 Unspecified glaucoma; N40.0 Benign prostatic hyperplasia without lower urinary tract symptoms; I25.10 Atherosclerotic heart disease of native coronary artery without angina pectoris; E66.9 Obesity, unspecified; Z68.35 Body mass index [BMI] 35.0-35.9, adult; Z20.822 Contact with and (suspected) exposure to COVID-19; Z79.899 Other long term (current) drug therapy; Z79.01 Long term (current) use of anticoagulants; Z88.0 Allergy status to penicillin; Z98.890 Other specified postprocedural states; Z95.5 Presence of coronary angioplasty implant and graft; Z82.49 Family history of ischemic heart disease and other diseases of the circulatory system; Z80.6 Family history of leukemia; X58.XXXA Exposure to other specified factors, initial encounter; Y93.89 Activity, other specified; Y92.89 Other specified places as the place of occurrence of the external cause; Y99.8 Other external cause status
CPT/HCPCS: 27691; 28200; 36415; 64446; 64447; 71046; 73620; 76000; 76942; 80053; 81003; 82948; 85025; 93005; A6223; C1713; J2250; J2704; J2795; J3010; J3490; J7030; J7120; U0003; U0005; Z7506; Z7508; Z7512; A4618; A6253; A6449; A7000